=== PATIENT | male | born 1950 | race Caucasian/White ===

== ENCOUNTER → 2016-07-16 | Outpatient (CLI) | payer BC ==
--- NOTE | 2016-07-16 09:34 | RAD ---
Left knee radiographs History: Left knee pain for 2 weeks, no known injury. Comparison: None. Findings: AP, lateral, and oblique views of the left knee. No acute fracture or dislocation is identified. No joint effusion is seen. Mild tricompartment degeneration is present. Impression: 1. No acute osseous traumatic injury identified. 2. Mild tricompartment degeneration.
== END | disposition home or self-care (01) ==
LOC: DXRADRC 09:17
PROVIDERS: ATTEND Family Medicine
DX: M25.562 Pain in left knee (principal)
CPT/HCPCS: 73562

== ENCOUNTER → 2016-07-24 | Outpatient (CLI) | payer BC ==
--- NOTE | 2016-07-24 17:19 | RAD ---
AP pelvis radiographs to include a lateral radiograph of the left hip 07/24/2016 Clinical history: Left hip pain for 2 weeks. An AP digital radiograph of the pelvis was obtained. A lateral digital radiographs of left hip was obtained. Comparison study dated 04/20/2013. No pelvic bone fracture is seen. Both hips are intact. Specifically no fracture or dislocation of the left hip is seen. Moderate degenerative changes are seen involving the lower lumbar spine. Calcifications are seen within the pelvis consistent with phleboliths. Moderate to severe degenerative changes are seen involving both hips, left great greater than right. Impression: Moderate to severe degenerative changes are seen involving both hips, left greater the right. No acute osseous abnormality is seen.
== END | disposition home or self-care (01) ==
LOC: DXRADRC 15:39
PROVIDERS: ATTEND Family Medicine
DX: M47.896 Other spondylosis, lumbar region (principal); M25.552 Pain in left hip
CPT/HCPCS: 73501

== ENCOUNTER → 2016-10-11 | Outpatient (CLI) | payer BC ==
--- NOTE | 2016-10-11 15:38 | RAD ---
Indication: Left leg swelling. Grayscale, color-flow and duplex Doppler evaluation of the left lower extremity deep venous system was performed. FINDINGS: There is no evidence of a left lower extremity DVT. The left lower extremity venous system demonstrates normal compressibility with normal response to augmentation and Valsalva. No soft tissue fluid collections are identified. IMPRESSION: No evidence of left lower extremity DVT.
== END | disposition home or self-care (01) ==
LOC: US 14:41
PROVIDERS: ATTEND Family Medicine
DX: M79.89 Other specified soft tissue disorders (principal)
CPT/HCPCS: 93971

== ENCOUNTER → 2016-10-15 | Outpatient (CLI) | payer BC ==
--- NOTE | 2016-10-15 09:28 | RAD ---
Chest, 2 views, 10/15/2016: History: Throat discomfort, difficulty swallowing Comparison is made to a study from 01/17/2015. The heart is now mildly enlarged. The pulmonary vascularity is normal. No pulmonary infiltrates are seen. There is no evidence of pleural fluid. Mild spurring is present in the spine. IMPRESSION: 1. Mild cardiomegaly. 2. No acute infiltrates
--- NOTE | 2016-10-15 09:30 | RAD ---
Neck for soft tissues, 10/15/2016: History: Foreign body sensation The epiglottis is normal in size and configuration. No prevertebral soft tissue swelling is seen. Cartilaginous calcifications are evident. There is moderate calcific plaquing at the right carotid bifurcation. No radiopaque foreign body is evident in the soft tissues. There is moderate multilevel degenerative change with disc space narrowing and marginal spurring in the mid and lower cervical spine. IMPRESSION: No acute abnormality is detected.
== END | disposition home or self-care (01) ==
LOC: DXRAD 08:44
PROVIDERS: ATTEND Family Medicine
DX: T18.9XXA Foreign body of alimentary tract, part unspecified, initial encounter (principal); R13.10 Dysphagia, unspecified; I51.7 Cardiomegaly; X58.XXXA Exposure to other specified factors, initial encounter; Y93.89 Activity, other specified; Y92.89 Other specified places as the place of occurrence of the external cause; Y99.8 Other external cause status
CPT/HCPCS: 70360; 71020

== ENCOUNTER → 2017-01-30 | Outpatient (CLI) | payer BC ==
--- NOTE | 2017-01-31 13:36 | RAD ---
DATE: 01/30/2017 EXAM: DIGITAL DIAGNOSTIC BILATERAL HISTORY: Left breast lump and pain. The history of a cyst removed from the right breast has been provided. COMPARISON: 08/09/2014 This study was interpreted with the benefit of Computerized Aided Detection (CAD ). FINDINGS: Breast Density: SCATTERED The breast parenchyma shows scattered fibroglandular densities. Breast parenchyma level B. A biopsy clip in the right breast is noted. There are subareolar densities in both breasts left greater than right compatible with gynecomastia. The gynecomastia regarding the left breast is more pronounced than on the previous exam. Targeted ultrasound to the area of concern in the left breast was performed. Again there are findings compatible with gynecomastia. The gynecomastia changes are slightly more pronounced than on the previous exam IMPRESSION: Benign findings. There are changes in both breasts compatible with gynecomastia. The changes regarding the left breast have progressed slightly when compared to the study 2 1/2 years ago BI-RADS CATEGORY: 2 BENIGN FINDING(S) RECOMMENDED FOLLOW-UP: CLIN FOLLOW UP IMAGING CLINICALLY INDICATED PQRS compliance statement: Patient information was entered into a reminder system with a target due date as clinically warranted for the next mammogram. Mammography is a sensitive method for finding small breast cancers, but it does not detect them all and is not a substitute for careful clinical examination. A negative mammogram does not negate a clinically suspicious finding and should not result in delay in biopsying a clinically suspicious abnormality. "Our facility is accredited by the [employer] Mammography Program." HAMZAHD
== END | disposition home or self-care (01) ==
LOC: US 13:27
PROVIDERS: ATTEND Family Medicine
DX: N63.20 Unspecified lump in the left breast, unspecified quadrant (principal)
CPT/HCPCS: 76641; G0204; 77066

== ENCOUNTER 2017-06-03 17:31 | Emergency (ER) | payer MEDICARE ==
[~2017-06-03] VITALS: Ht 172.7 cm; Wt 84.8 kg
--- NOTE | 2017-06-03 17:48 | ED.ADGEN ---
Past History Past Medical History: A-Fib Adult General Chief Complaint Chief Complaint " I fell yesterday.. when I was bending over in my chair.. and scrapped my nose and ear..." HPI HPI Patient is a 67 year old male who presents with above hx and complaints abrasion to nose and left ear. Injury occurred more than 24 hours ago. Patient normally follows with Dr. Campbell and Dr. Bell. Patient has had a previous cardiac disorder A. fib and is on Xarelto . Pt. seen in clinic and referred to ED. The patient denies any other injuries.. Patient denies any dysrhythmia. Patient denies any dizziness. Patient states that sometimes when he gets up very quickly from laying down or sitting that he may get momentary dizziness. Patient does state his tetanus is up-to-date. No recent travel. No specific ill contacts. No complaints now except with abrasions to his left ear and nose. Review of Systems Review of Systems Constitutional: Denies fever or chills [] Eyes: Denies change in visual acuity, redness, or eye pain [] HENT: Denies nasal congestion or sore throat [] Respiratory: Denies cough or shortness of breath [] Cardiovascular: No additional information not addressed in HPI [] GI: Denies abdominal pain, nausea, vomiting, bloody stools or diarrhea [] : Denies dysuria or hematuria [] Musculoskeletal: Denies back pain or joint pain [] Integument: Abrasion to nose and left ear Neurologic: Denies headache, focal weakness or sensory changes [] Endocrine: Denies polyuria or polydipsia [] All other systems were reviewed and found to be within normal limits, except as documented in this note. Family History Family History Noncontributory Current Medications Current Medications Current Medications Medications (Trade) Dose Ordered Sig/Davy Start Time Stop Time Status Last Admin Dose Admin Magnesium Hydroxide (Milk Of Magnesia) 2,400 mg 1X ONCE 06/03/17 21:30 06/03/17 21:31 DC 06/03/17 21:19 2,400 MG Potassium Chloride (KCl Oral Soln) 40 meq 1X ONCE 06/03/17 21:30 06/03/17 21:31 DC 06/03/17 21:19 40 MEQ Sodium Chloride 1,000 ml @ 1,000 mls/hr Q1H 06/03/17 18:44 06/03/17 19:43 DC 06/03/17 18:44 1,000 MLS/HR Allergies Allergies Allergies Coded Allergies Type Severity Reaction Last Updated Verified No Known Drug Allergies 06/03/17 No Physical Exam Physical Exam Constitutional: no acute distress, non-toxic appearance. [] HENT: Normocephalic, abrasions to left ear and nose, bilateral external ears normal, oropharynx moist, no oral exudates, nose abrasion. Left ear abrasion. Eyes: PERRLA, EOMI, conjunctiva normal, no discharge. [] Neck: Normal range of motion, no tenderness, supple, no stridor. [] Cardiovascular:Heart rate regular rhythm, no murmur [] Lungs & Thorax: Bilateral breath sounds equal apex auscultation [] Abdomen: Bowel sounds normal, soft, no tenderness, no masses, no pulsatile masses. [] Skin: Warm, dry, no erythema, no rash. [] Back: No tenderness, no CVA tenderness. [] Extremities: No tenderness, no cyanosis, no clubbing, ROM intact, no edema. [] Neurologic: Alert and oriented X 3, normal motor function, normal sensory function, no focal deficits noted. DTRs +2 at brachial and patellar. No drift. Debate Director equal. Psychologic: Affect normal, judgement normal, mood normal. [] Current Patient Data Vital Signs Vital Signs Date Time Temp Pulse Resp B/P (MAP) Pulse Ox O2 Delivery O2 Flow Rate FiO2 06/03/17 20:59 72 20 113/70 (84) 06/03/17 18:33 98.3 95 Room Air Lab Results Laboratory Tests Test 06/03/17 18:51 06/03/17 18:57 Urine Collection Type Unknown Urine Color Yellow Urine Clarity Clear Urine pH 5.0 Urine Specific Serena 1.010 Urine Protein Neg (NEG-TRACE) Urine Glucose (UA) Neg mg/dL (NEG) Urine Ketones (Stick) Neg mg/dL (NEG) Urine Blood Neg (NEG) Urine Nitrite Neg (NEG) Urine Bilirubin Neg (NEG) Urine Urobilinogen Dipstick 0.2 mg/dL (0.2 mg/dL) Urine Leukocyte Esterase Neg (NEG) Urine RBC Rare /HPF (0-2) Urine WBC Occ /HPF (0-4) Urine Squamous Epithelial Cells Occ /LPF Urine Bacteria 0 /HPF (0-FEW) Urine Hyaline Casts Mod /HPF Urine Mucus Mod /LPF Urine Opiates Screen Neg (NEG) Urine Methadone Screen Neg (NEG) Urine Barbiturates Neg (NEG) Urine Phencyclidine Screen Neg (NEG) Urine Amphetamine/Methamphetamine Neg (NEG) Urine Benzodiazepines Screen Neg (NEG) Urine Cocaine Screen Neg (NEG) Urine Cannabinoids Screen Neg (NEG) Urine Ethyl Alcohol Pos (NEG) White Blood Count 7.3 x10^3/uL (4.0-11.0) Red Blood Count 3.54 x10^6/uL (4.30-5.70) L Hemoglobin 13.6 g/dL (13.0-17.5) Hematocrit 38.7 % (39.0-53.0) L Mean Corpuscular Volume 109 fL (79-100) H Mean Corpuscular Hemoglobin 38 pg (25-35) H Mean Corpuscular Hemoglobin Concent 35 g/dL (31-37) Red Cell Distribution Width 12.6 % (11.5-14.5) Platelet Count 135 x10^3/uL (140-400) L Neutrophils (%) (Auto) 70 % (31-73) Lymphocytes (%) (Auto) 18 % (24-48) L Monocytes (%) (Auto) 10 % (0-9) H Eosinophils (%) (Auto) 1 % (0-3) Basophils (%) (Auto) 1 % (0-3) Neutrophils # (Auto) 5.1 x10^3uL (1.8-7.7) Lymphocytes # (Auto) 1.3 x10^3/uL (1.0-4.8) Monocytes # (Auto) 0.8 x10^3/uL (0.0-1.1) Eosinophils # (Auto) 0.1 x10^3/uL (0.0-0.7) Basophils # (Auto) 0.1 x10^3/uL (0.0-0.2) Prothrombin Time 10.3 SEC (9.4-11.4) Prothrombin Time INR 1.0 (0.9-1.1) PTT 23 SEC (23-33) D-Dimer (Sharmila) < 0.19 mg/L (0.00-0.50) Sodium Level 137 mmol/L (136-145) Potassium Level 3.1 mmol/L (3.5-5.1) L Chloride Level 96 mmol/L (98-107) L Carbon Dioxide Level 29 mmol/L (21-32) Anion Gap 12 (6-14) Blood Urea Nitrogen 25 mg/dL (8-26) Creatinine 1.2 mg/dL (0.7-1.3) Estimated GFR (Cockcroft-Gault) 60.8 Glucose Level 98 mg/dL (70-99) Calcium Level 8.8 mg/dL (8.5-10.1) Magnesium Level 1.7 mg/dL (1.8-2.4) L Total Bilirubin 0.3 mg/dL (0.2-1.0) Direct Bilirubin 0.1 mg/dL (0.0-0.2) Aspartate Amino Transferase (AST) 27 U/L (15-37) Alanine Aminotransferase (ALT) 35 U/L (16-63) Alkaline Phosphatase 100 U/L (46-116) Creatine Kinase 62 U/L (39-308) Creatine Kinase MB (Mass) 2.0 ng/mL (0.0-3.6) Creatine Kinase MB Relative Index 3.2 % (0-4) Troponin I Quantitative < 0.017 ng/mL (0-0.055) JD-Eqc-S-Type Natriuretic Peptide 76 pg/mL (0-124) Total Protein 7.4 g/dL (6.4-8.2) Albumin 3.6 g/dL (3.4-5.0) Lipase 169 U/L (73-393) Ethyl Alcohol Level < 10 mg/dL (0-10) EKG EKG My interpretation EKG shows a sinus rhythm at 74 bpm with no acute morphology.[] Radiology/Procedures Radiology/Procedures My interpretation CT head shows no shift, mass, edema, bleed, or fracture[] Course & Med Decision Making Course & Med Decision Making Pertinent Labs and Imaging studies reviewed. (See chart for details) Patient apply Polysporin to abrasion 4 times a day. Patient follow-up primary care. Patient push fruit juices. Patient resumed taking multivitamin. Patient follow-up primary care. Patient return if any concerns. [] Final Impression Final Impression 1. Abrasions to nose and left ear 2. Hypokalemia 3. Hypomagnesemia 4. Macrocytic indices 5. Hypochromic indices[] 6. Thrombocytopenia Problems: Dragon Disclaimer Dragon Disclaimer This electronic medical record was generated, in whole or in part, using a voice recognition dictation system. ELIZABETH DALE MD Jun 03, 2017 17:48
[2017-06-03] MEDS ORDERED: IV NORMAL SALINE 1,000ML 1,000 ML IV SCH (18:44)
[2017-06-03 19:12] LABS: BASO # 0.1 x10^3/uL (0.0-0.2); BASO % 1 % (0-3); EOS # 0.1 x10^3/uL (0.0-0.7); EOS % 1 % (0-3); HEMATOCRIT 38.7 % (39.0-53.0); HEMOGLOBIN 13.6 g/dL (13.0-17.5); LYMPH # 1.3 x10^3/uL (1.0-4.8); LYMPH % 18 % (24-48); MEAN CORPUSCULAR HEMOGLOBIN 38 pg (25-35); MEAN CORPUSCULAR HGB CONC 35 g/dL (31-37); MEAN CORPUSCULAR VOLUME 109 fL (79-100); MONO # 0.8 x10^3/uL (0.0-1.1); MONO % 10 % (0-9); NEUT # 5.1 x10^3uL (1.8-7.7); NEUT % 70 % (31-73); PLATELET COUNT 135 x10^3/uL (140-400); RED BLOOD COUNT 3.54 x10^6/uL (4.30-5.70); RED CELL DISTRIBUTION WIDTH 12.6 % (11.5-14.5); WHITE BLOOD COUNT 7.3 x10^3/uL (4.0-11.0)
[2017-06-03 19:23] LABS: BARBITURATES NEG (NEG); BENZODIAZEPINES NEG (NEG); CANNABINOIDS NEG (NEG); COCAINE NEG (NEG); METHADONE NEG (NEG); OPIATES NEG (NEG); PHENCYCLIDINE NEG (NEG)
[2017-06-03 19:24] LABS: AMPHETAMINE/METHAMPHETAMINE NEG (NEG)
[2017-06-03 19:31] LABS: ALBUMIN 3.6 g/dL (3.4-5.0); CALCIUM 8.8 mg/dL (8.5-10.1); CREATININE 1.2 mg/dL (0.7-1.3); DIRECT BILIRUBIN 0.1 mg/dL (0.0-0.2); GFR 60.8; MAGNESIUM 1.7 mg/dL (1.8-2.4); POTASSIUM 3.1 mmol/L (3.5-5.1); TOTAL BILIRUBIN 0.3 mg/dL (0.2-1.0); TOTAL PROTEIN 7.4 g/dL (6.4-8.2)
--- NOTE | 2017-06-03 19:37 | RAD ---
EXAM: Head CT without contrast. HISTORY: Fall. TECHNIQUE: Computed tomographic images of the head were obtained without contrast. *One or more of the following individualized dose reduction techniques were utilized for this examination: 1. Automated exposure control. 2. Adjustment of the mA and/or kV according to patient size. 3. Use of iterative reconstruction technique. COMPARISON: None. FINDINGS: There is no acute or subacute extra-axial or intraparenchymal hemorrhage. There is no mass effect or midline shift. There is no hydrocephalus. There are areas of decreased attenuation within the cerebral white matter, nonspecific and likely related to chronic small vessel disease. The visualized portions of the orbits, paranasal sinuses and mastoid air cells are unremarkable. No suspicious calvarial lesion is seen. IMPRESSION: No acute intracranial findings. Electronically signed by: Chelita Rodriguez MD (06/03/2017 7:33 PM) [facility]
[2017-06-03 19:39] LABS: COLOR,URINE YELLOW
[2017-06-03 19:40] LABS: BACTERIA,URINE 0 /HPF (0-FEW); BILIRUBIN,URINE NEG (NEG); CLARITY,URINE CLEAR; GLUCOSE,URINE NEG (NEG); NITRITE,URINE NEG (NEG); RBC,URINE RARE /HPF (0-2); SQUAMOUS EPITHELIAL CELL,UR OCC /LPF; UROBILINOGEN,URINE 0.2 mg/dL (0.2 mg/dL); WBC,URINE OCC /HPF (0-4)
[2017-06-03 19:46] LABS: HYALINE CASTS, URINE MOD /HPF
[2017-06-03 20:59] VITALS: BP 113/70
[2017-06-03] MEDS ORDERED: POTASSIUM CHLORIDE 20 MEQ/15 ML ORAL LIQUID. PO ONE (21:30)
[2017-06-03] MEDS ORDERED: MAGNESIUM HYDROXIDE 2,400 MG/30 ML ORAL.SUSP. PO ONE (21:30)
--- NOTE | 2017-06-04 08:27 | RAD ---
2 view CXR: Clinical indications: Injury from a fall yesterday. Dizziness and lightheadedness. Headache. Chest pain. Comparison: October 15, 2016. Findings: No acute lung infiltrate or pleural effusion or pulmonary edema or lung mass or pneumothorax is seen. The heart size, pulmonary vasculature, mediastinum and both hillary are unremarkable. The osseous structures appear intact. Impression: No acute radiographic abnormality is seen.
--- NOTE | 2017-06-04 08:31 | EKG ---
[address] [address] Test Date: 2017-06-03 Test Time: 18:56:15 Pat Name: ELIZABETH HENSON Department: Room: Gender: M Stat[employer]ver: CHEL : 1950 Requested By: ELIZABETH DALE Order Number: [id number] Reading MD: Jose Roberto Howard Measurements Intervals [place] Rate: 74 P: 55 AL: 182 QRS: -8 QRSD: 92 T: 41 QT: 416 QTc: 462 Interpretive Statements SINUS RHYTHM LEFTWARD AXIS OTHERWISE NORMAL ECG RI6.01 No previous ECG available for comparison Electronically Signed On 06-05-2017 11:50:05 [employer] EDUCATION SCIENCE TEACHER by Jose Roberto Howard
== END 2017-06-03 21:30 | disposition home or self-care (01) ==
LOC: ER 17:31
DX: S00.31XA Abrasion of nose, initial encounter (principal); S00.412A Abrasion of left ear, initial encounter; E83.42 Hypomagnesemia; E87.6 Hypokalemia; D53.9 Nutritional anemia, unspecified; D50.9 Iron deficiency anemia, unspecified; D69.6 Thrombocytopenia, unspecified; I48.91 Unspecified atrial fibrillation; Z79.01 Long term (current) use of anticoagulants; W07.XXXA Fall from chair, initial encounter; Y93.89 Activity, other specified; Y99.8 Other external cause status; Y92.89 Other specified places as the place of occurrence of the external cause
CPT/HCPCS: 36415; 70450; 71046; 80048; 80076; 80307; 81001; 82553; 83690; 83735; 83880; 84443; 84484; 85025; 85379; 85610; 85730; 93005; 96360; 96361; 99285; G0480; G0479; J7030

== ENCOUNTER → 2017-06-05 | Outpatient (CLI) | payer MEDICARE ==
[2017-06-03 20:59] VITALS: BP 113/70
== END | disposition home or self-care (01) ==
LOC: SURG 12:56
PROVIDERS: ATTEND Anesthesiology Pain Medicine
DX: M54.5 Low back pain (principal); M79.605 Pain in left leg; M19.90 Unspecified osteoarthritis, unspecified site; M62.81 Muscle weakness (generalized); Z87.891 Personal history of nicotine dependence
CPT/HCPCS: 99213

== ENCOUNTER → 2017-06-20 | Outpatient (CLI) | payer MEDICARE ==
[2017-06-03 20:59] VITALS: BP 113/70
[~2017-06-20] MED LIST: BUPIVACAINE MPF 0.25% 10 ML VIAL. ONE; DEXAMETHASONE SOD PHOS 4 MG/ML VIAL ONE; IOHEXOL 300 MG/ML 50 ML VIAL. ONE; LIDOCAINE 1% PF 30 ML VIAL. ONE
== END | disposition home or self-care (01) ==
LOC: SURG 09:59
PROVIDERS: ATTEND Anesthesiology Pain Medicine
DX: M16.12 Unilateral primary osteoarthritis, left hip (principal); I10 Essential (primary) hypertension; I48.91 Unspecified atrial fibrillation; M19.90 Unspecified osteoarthritis, unspecified site; F17.210 Nicotine dependence, cigarettes, uncomplicated
CPT/HCPCS: 20610; 77002; 99213; J1100; J2001; J3490; Q9967

== ENCOUNTER → 2018-01-29 | Outpatient (CLI) | payer MEDICARE ==
[2018-01-29 15:36] LABS: CALCIUM 9.2 mg/dL (8.5-10.1); CREATININE 0.8 mg/dL (0.7-1.3); POTASSIUM 3.6 mmol/L (3.5-5.1)
== END | disposition home or self-care (01) ==
LOC: LAB 14:14
PROVIDERS: ATTEND Internal Medicine Cardiovascular Disease
DX: I48.91 Unspecified atrial fibrillation (principal)
CPT/HCPCS: 36415; 80048; 83880

== ENCOUNTER → 2018-02-04 | Outpatient (CLI) | payer MEDICARE ==
--- NOTE | 2018-02-04 14:21 | RAD ---
MR#: [id number] Date of Study: 02/04/2018 Ordering Physician: CARMELLA FOREMAN, Referring Physician: CARMELLA FOREMAN, Tech: Talia Anaya BS, RTR, RDMS, RVT APPROVED REPORT Patient Location : OUT-PATIENT Indications Lower Extremity Pain : Bilateral Grayscale images of the bilateral saphenofemoral junctions do not reveal any evidence of thrombus. Th ere is no evidence of reflux in the bilateral greater and lesser saphenous veins. Critical Notification Critical Value: No <Conclusion> Negative for reflux in the bilateral greater and lesser saphenous veins Signed by : Carmella Foreman, Electronically Approved : 02/04/2018 14:20:39
== END | disposition home or self-care (01) ==
LOC: US 13:49
PROVIDERS: ATTEND Internal Medicine Cardiovascular Disease
DX: I87.2 Venous insufficiency (chronic) (peripheral) (principal)
CPT/HCPCS: 93970

== ENCOUNTER → 2018-06-10 | Outpatient (CLI) | payer MEDICARE ==
--- NOTE | 2018-06-10 22:59 | RAD ---
CHEST PA LATERAL CLINICAL INDICATION: Chest pain, cough, congestion COMPARISON: 06/03/2017 FINDINGS: Heart is normal in size. Central bilateral prominent perihilar bronchovascular markings are seen. No focal consolidation. No pneumothorax or pleural effusion. Visualized bony thorax within normal limits. IMPRESSION: Findings suggests bronchitis. Electronically signed by: Nicholas Rubio DO (06/10/2018 10:56 PM) [facility]
== END | disposition home or self-care (01) ==
LOC: DXRAD 18:08
PROVIDERS: ATTEND Family Medicine
DX: J06.9 Acute upper respiratory infection, unspecified (principal); R07.9 Chest pain, unspecified; R09.89 Other specified symptoms and signs involving the circulatory and respiratory systems
CPT/HCPCS: 71046

== ENCOUNTER → 2018-09-05 | Outpatient (CLI) | payer MEDICARE ==
[~2018-09-05] MED LIST changes: -BUPIVACAINE MPF 0.25% 10 ML VIAL. ONE; -DEXAMETHASONE SOD PHOS 4 MG/ML VIAL ONE; -IOHEXOL 300 MG/ML 50 ML VIAL. ONE; +IOHEXOL 300 MG/ML 75 ML VIAL. IV ONE; -LIDOCAINE 1% PF 30 ML VIAL. ONE
[2018-09-05 15:33] LABS: GFR 74.8
--- NOTE | 2018-09-05 16:47 | RAD ---
CT of the abdomen with and without contrast, 09/05/2018: HISTORY: Pancreatic lesion Multidetector CT imaging was performed prior to and following an IV bolus injection of iodinated contrast material. No oral contrast material was administered for this exam. The postcontrast scans were obtained in portal venous and delayed phases. There is a 1.1 cm exophytic nodule arising from the superior aspect of the pancreatic tail. It appears to be of water density on all the phases without evidence of postcontrast enhancement. No solid pancreatic mass or abnormal enhancing process is seen. The liver demonstrates a large geographic area of decreased density involving much of the right lobe. The hepatic vasculature demonstrates normal underlying branching without mass effect. No tumor type postcontrast enhancement is seen. The appearance is most compatible with patchy fatty infiltration. The gallbladder is unremarkable. The spleen is of normal size. There is mild left renal cortical scarring. A tiny subcentimeter low-density lesion in the lower pole of the right kidney is too small to definitively characterize but is probably a cyst. The kidneys are otherwise unremarkable. There is calcific plaquing of the abdominal aorta without evidence of aneurysm. Scattered coronary artery calcifications are noted. No retroperitoneal or mesenteric adenopathy is seen. The visualized bowel loops are not dilated. No free fluid is evident in the abdomen. Moderate multilevel degenerative changes are present in the spine. IMPRESSION: 1. Tiny exophytic cyst arising from the tail the pancreas, most likely benign. A cystic pancreatic neoplasm is less likely. CT follow-up in one year is suggested. 2. Heterogeneous liver in a pattern most compatible with patchy fatty infiltration. PQRS Compliance Statement: One or more of the following individualized dose reduction techniques were utilized for this examination: 1. Automated exposure control 2. Adjustment of the mA and/or kV according to patient size 3. Use of iterative reconstruction technique Electronically signed by: Juan Redmond MD (09/05/2018 4:44 PM) [facility]
== END | disposition home or self-care (01) ==
LOC: CT 14:14
PROVIDERS: ATTEND Family Medicine
DX: K86.89 Other specified diseases of pancreas (principal); N28.89 Other specified disorders of kidney and ureter; I70.0 Atherosclerosis of aorta; I25.10 Atherosclerotic heart disease of native coronary artery without angina pectoris; M47.819 Spondylosis without myelopathy or radiculopathy, site unspecified
CPT/HCPCS: 36415; 74170; 82565; Q9967

== ENCOUNTER → 2019-01-12 | Outpatient (CLI) | payer MEDICARE ==
--- NOTE | 2019-01-13 13:38 | RAD ---
Examination: BREAST LEFT History: Breast cyst, palpable left breast abnormality which reportedly is increased since the previous exam Comparison/Correlation: Limited Left breast ultrasound exam 01/30/2017, bilateral diagnostic mammography exam 01/30/2017 Findings: Ultrasound examination of the left subareolar region was performed. Hypoechogenicity compatible with gynecomastia similar to the prior ultrasound exam is again seen. Impression: BI-RADS Category 1-negative. Left gynecomastia again seen. No suspicious finding identified in the left subareolar region. Bilateral diagnostic mammography exam for more complete assessment should be considered. Electronically signed by: Buzz Espino MD (01/13/2019 1:35 PM) [facility]
== END | disposition home or self-care (01) ==
LOC: US 13:50
PROVIDERS: ATTEND Family Medicine
DX: N62 Hypertrophy of breast (principal); N60.02 Solitary cyst of left breast
CPT/HCPCS: 76641

== ENCOUNTER → 2019-04-21 | Outpatient (CLI) | payer MEDICARE ==
--- NOTE | 2019-04-21 13:57 | CARD ---
MR#: [id number] Date of Study: 04/21/2019 Ordering Physician: CARMELLA FOREMAN, Referring Physician: CARMELLA FOREMAN, Tech: Lisy Majano [facility] APPROVED REPORT EXAM: Two-dimensional and M-mode echocardiogram with Doppler and color Doppler. Other Information Quality : Fair INDICATION Non-Ischemic Cardiomyopathy 2D DIMENSIONS RVDd2.1 (2.9-3.5cm)Left Atrium(2D)3.6 (1.6-4.0cm) IVSd0.8 (0.7-1.1cm)Aortic Root(2D)2.7 (2.0-3.7cm) LVDd5.7 (3.9-5.9cm)LVOT Diameter2.2 (1.8-2.4cm) PWd0.9 (0.7-1.1cm)LVDs3.3 (2.5-4.0cm) FS (%) 30.0 %SV119.5 ml LVEF(%)60.0 (>50%) Aortic Valve AoV Peak Ramo.130.3cm/sAoV VTI17.6cm AO Peak GR.6.8mmHgLVOT Peak Ramo.97.3cm/s LVOT VTI 14.50cmAO Mean GR.4mmHg YIN (VMAX)2.84iu2HKR (VTI)3.16cm2 Mitral Valve MV E Tknclwnc97.5cm/sMV DECEL OVXK175ry MV A Ebuyobnm18.9cm/sE/A Ratio0.7 LEFT VENTRICLE The left ventricle is normal size. There is normal left ventricular wall thickness. The left ventricu lar systolic function is normal. The Ejection Fraction is 55-60%. There is normal LV segmental wall m otion. Transmitral Doppler flow pattern is Grade I-abnormal relaxation pattern. RIGHT VENTRICLE The right ventricle is normal size. The right ventricular systolic function is normal. ATRIA The left atrium size is normal. The right atrium size is normal. The interatrial septum is intact wit h no evidence for an atrial septal defect or patent foramen ovale as noted on 2-D or Doppler imaging. AORTIC VALVE The aortic valve is mildly thickened but opens well. Doppler and Color Flow revealed no significant a ortic regurgitation. There is no significant aortic valvular stenosis. MITRAL VALVE The mitral valve is calcified but opens well. There is no evidence of mitral valve prolapse. There is no mitral valve stenosis. Doppler and Color Flow revealed no mitral valve regurgitation noted. TRICUSPID VALVE The tricuspid valve is normal in structure and function. Doppler and Color Flow revealed no tricuspid valve regurgitation noted. There is no tricuspid valve stenosis. PULMONIC VALVE The pulmonic valve is not well visualized. Doppler and Color Flow revealed no pulmonic valvular regur gitation. There is no pulmonic valvular stenosis. GREAT VESSELS The aortic root is normal in size. The ascending aorta is moderately dilated at 3.8 cm. The IVC is no rmal in size and collapses >50% with inspiration. PERICARDIAL EFFUSION There is no evidence of significant pericardial effusion. Critical Notification Critical Value: No <Conclusion> The left ventricular systolic function is normal. The Ejection Fraction is 55-60%. There is normal LV segmental wall motion. Transmitral Doppler flow pattern is Grade I-abnormal relaxation pattern. There is no evidence of significant pericardial effusion. Signed by : Brad Alexander, Electronically Approved : 04/21/2019 13:57:06
== END | disposition home or self-care (01) ==
LOC: ECHO 09:48
PROVIDERS: ATTEND Internal Medicine Cardiovascular Disease
DX: I34.8 Other nonrheumatic mitral valve disorders (principal); I42.9 Cardiomyopathy, unspecified
CPT/HCPCS: 93306

== ENCOUNTER → 2019-05-05 | Outpatient (CLI) | payer MEDICARE ==
--- NOTE | 2019-05-06 08:13 | RAD ---
MR#: [id number] Date of Study: 05/05/2019 Ordering Physician: CARMELLA KULKARNI, Referring Physician: CARMELLA KULKARNI, Tech: Olya Alvarado RDMS RVT APPROVED REPORT Patient Location: OUT-PATIENT Indications TOBACCO ABUSE Risk Factors SmokingGrayscale images of the abdominal aorta reveal mild diffuse intimal hyperplasia and plaque. No obvious aortic aneurysm, dissection or significant obstructive plaque is identified. Technically sanchez ited images. Duplex Results A/PTransverseLongitudinal Proximal Aorta 1.8cm2.1cm Mid Aorta 1.5cm1.5cm Distal Aorta 1.5cm1.7cm Lt. Common Iliac Artery 1.5cm Critical Notification Critical Value: No <Conclusion> 1. No evidence of abdominal aortic aneurysm. Signed by : Carmella Kulkarni, Electronically Approved : 05/06/2019 08:13:24
== END | disposition home or self-care (01) ==
LOC: US 08:36
PROVIDERS: ATTEND Internal Medicine Cardiovascular Disease
DX: I70.0 Atherosclerosis of aorta (principal); Z72.0 Tobacco use
CPT/HCPCS: 93978

== ENCOUNTER → 2020-04-21 | Outpatient (CLI) | payer MEDICARE ==
--- NOTE | 2020-04-21 10:47 | RAD ---
EXAM: Chest, 2 views. HISTORY: Cough. COMPARISON: 06/10/2018 FINDINGS: 2 views of the chest are obtained. There is no infiltrate, pleural effusion or pneumothorax . There is suspected basilar atelectasis. The heart is normal in size. IMPRESSION: No acute pulmonary finding. Electronically signed by: Chelita Rodriguez MD (04/21/2020 10:45 AM) [id number]
== END ==
LOC: DXRAD 10:08
PROVIDERS: ATTEND Nurse Practitioner Family
DX: R06.89 Other abnormalities of breathing (principal); R05 Cough
CPT/HCPCS: 71046

== ENCOUNTER → 2020-05-26 | Outpatient (CLI) | payer MEDICARE ==
[~2020-05-26] MED LIST changes: +IOHEXOL 240 MG/ML 50ML VIAL. ONE
--- NOTE | 2020-05-26 15:56 | RAD ---
EXAM: CT Abdomen and Pelvis with IV contrast INDICATION: Reason: WEIGHT LOSS CHANGE IN BOWEL HABITS / Spl. Instructions: / History: TECHNIQUE: Multi-detector row CT images were acquired from the lung bases through the abdomen and pel vis with the use of IV contrast. Sagittal and coronal images were acquired from the transaxial data. All CT scans performed at this facility utilize dose optimization techniques as appropriate to the ex am, including the following: Automated exposure control and adjustment of the mA and/or KV according to patient size (this includes techniques or standardized protocols for targeted exams where dose is indication/reason for exam). IV CONTRAST: Administered ORAL CONTRAST: Administered COMPARISON: Abdomen pelvis CT without IV contrast of 09/05/2018 FINDINGS: LOWER CHEST: Unremarkable LIVER: Unremarkable BILIARY SYSTEM: Gallbladder is unremarkable. Bile ducts are not dilated. PANCREAS: A low-density oval 1.1 cm lesion adjacent to the pancreatic tail (image 36 of axial series 2) is unchanged and could represent a cystic pancreatic tail lesion. Given its stability in greater than one year follow up, no further follow-up is required. SPLEEN: Unremarkable ADRENALS: Unremarkable Leeper marginally larger KIDNEYS & URETERS: Unremarkable BLADDER: Unremarkable REPRODUCTIVE ORGANS: Unremarkable GASTROINTESTINAL: The stomach and small bowel are unremarkable. The large bowel shows fibrofatty infi ltration of the colonic wall in the ascending colon and borderline wall thickening. Scattered colonic diverticuli are also present. The sigmoid colon notable for hyperemia of the mesenteric vessels. The appendix is normal. MESENTERY/PERITONEUM/RETROPERITONEUM: Unremarkable VASCULAR: Unremarkable LYMPH NODES: No adenopathy OSSEOUS & SOFT TISSUES: Left total hip arthroplasty is present. IMPRESSION: 1. CT findings suggesting mild acute pancolitis without evidence of bowel obstruction, perforation or abscess formation. Electronically signed by: Kayli Wiley MD (05/26/2020 3:53 PM) [id number]
== END ==
LOC: CT 09:34
PROVIDERS: ATTEND Internal Medicine Gastroenterology
DX: R63.4 Abnormal weight loss (principal); R19.4 Change in bowel habit; Z96.642 Presence of left artificial hip joint
CPT/HCPCS: 74177; Q9967

== ENCOUNTER → 2020-06-28 | Outpatient (CLI) | payer MEDICARE ==
--- NOTE | 2020-06-28 17:03 | CARD ---
MR#: [id number] Date of Study: 06/28/2020 Ordering Physician: CARMELLA FOREMAN, Referring Physician: CARMELLA FOREMAN, Tech: Lisy Majano CHANTELLE APPROVED REPORT EXAM: Two-dimensional and M-mode echocardiogram with Doppler and color Doppler. Other Information Quality : Fair INDICATION NonIschemic Cardiomyopathy 2D DIMENSIONS RVDd1.9 (2.9-3.5cm)Left Atrium(2D)3.0 (1.6-4.0cm) IVSd1.0 (0.7-1.1cm)Aortic Root(2D)3.5 (2.0-3.7cm) LVDd4.7 (3.9-5.9cm)LVOT Diameter2.2 (1.8-2.4cm) PWd1.0 (0.7-1.1cm)LVDs3.7 (2.5-4.0cm) FS (%) 22.0 %SV45.2 ml LVEF(%)45.0 (>50%) Aortic Valve AoV Peak Ramo.79.0cm/sAoV VTI11.8cm AO Peak GR.2.5mmHgLVOT Peak Ramo.73.6cm/s LVOT VTI 13.43cmAO Mean GR.1mmHg YIN (VMAX)3.58ca8JUP (VTI)4.51cm2 Mitral Valve MV E Lydtofso20.0cm/sMV DECEL [id number] MV A Pvqvnggj72.7cm/sE/A Ratio0.7 Tricuspid Valve TR P. Unblgfok283lo/sRAP BRTCPEOH1zqWn TR Peak Gr.90poJbCGKV32hoZl Pulmonary Vein S1 Mjyanmqn21.6cm/sD2 Ntuinqhp91.2cm/s LEFT VENTRICLE The left ventricle is normal size. There is normal left ventricular wall thickness. Left ventricle sy stolic function is normal. The Ejection Fraction is 50-55%. There is normal LV segmental wall motion. Transmitral Doppler flow pattern is Grade I-abnormal relaxation pattern. RIGHT VENTRICLE The right ventricle is mildly dilated. The right ventricular systolic function is normal. ATRIA The left atrium size is normal. The right atrium size is normal. The interatrial septum is intact wit h no evidence for an atrial septal defect or patent foramen ovale as noted on 2-D or Doppler imaging. AORTIC VALVE The aortic valve is calcified but opens well. Doppler and Color Flow revealed no significant aortic r egurgitation. There is no significant aortic valvular stenosis. MITRAL VALVE The mitral valve is calcified but opens well. There is no evidence of mitral valve prolapse. There is no mitral valve stenosis. Doppler and Color Flow revealed no mitral valve regurgitation noted. TRICUSPID VALVE The tricuspid valve is normal in structure and function. Doppler and Color Flow revealed physiologica l tricuspid regurgitation. The PA pressure was estimated at 25 mmHg. There is no tricuspid valve sten osis. PULMONIC VALVE The pulmonic valve is not well visualized. Doppler and Color Flow revealed no pulmonic valvular regur gitation. There is no pulmonic valvular stenosis. GREAT VESSELS The aortic root is normal in size. The ascending aorta is not well seen. The IVC is normal in size an d collapses >50% with inspiration. PERICARDIAL EFFUSION There is no evidence of significant pericardial effusion. Critical Notification Critical Value: No <Conclusion> Left ventricle systolic function is normal. The Ejection Fraction is 50-55%. There is normal LV segmental wall motion. Signed by : Carmella Foreman, Electronically Approved : 06/28/2020 17:02:46
== END ==
LOC: ECHO 14:42
PROVIDERS: ATTEND Internal Medicine Cardiovascular Disease
DX: I08.3 Combined rheumatic disorders of mitral, aortic and tricuspid valves (principal); I42.9 Cardiomyopathy, unspecified
CPT/HCPCS: 93306

== ENCOUNTER → 2021-04-27 | Outpatient (CLI) | payer MEDICARE ==
--- NOTE | 2021-04-27 15:50 | RAD ---
EXAM: Chest, 2 views. HISTORY: Cough. COMPARISON: None. FINDINGS: 2 views of the chest are obtained. There is no infiltrate, pleural effusion or pneumothorax . The heart is normal in size. IMPRESSION: No acute pulmonary finding. Electronically signed by: Chelita Rodriguez MD (04/27/2021 3:47 PM) [id number]
== END ==
LOC: RAD 15:26
PROVIDERS: ATTEND Family Medicine
DX: J18.9 Pneumonia, unspecified organism (principal); R05.9 Cough, unspecified
CPT/HCPCS: 71046